=== PATIENT | female | born 1965 | race Caucasian/White ===

== ENCOUNTER 2022-07-21 19:13 | Observation (INO) | payer OTHER ==
[2022-07-21] MEDS ORDERED: Sodium Chloride 0.9% 1000 ML 1,000 ML IV STA (19:23)
[2022-07-21] MEDS ORDERED: Zithromax 500 MG/ 250 ML NaCl Premix 500 MG/250 ML IVPB IV STA (19:23)
[2022-07-21] MEDS ORDERED: ROCEPHIN 1 Gm-D5w 50 ml Bag** 1 G/50 ML IVPB IV STA (19:23)
--- NOTE | 2022-07-21 19:26 | ERPHSYRPT ---
- History of Present Illness Time Seen by Provider: 07/21/22 19:26 Source: patient, EMS Exam Limitations: no limitations Physician History: Patient BIBA for worsening cough, wheezing and SOB. She has been having sxs for the past 2 days. Cough non productive. No fevers. She was unable to sleep laying down last night and had to sleep upright in the chair. She doesn't wear oxygen at home, but is requiring 2L NC at this time w/ Ox levels in the low 90s. She denies CP, palpitations, abd pain or worsening swelling. Timing/Duration: day(s) (2), worse Activities at Onset: rest Severity of Dyspnea-Max: severe Severity of Dyspnea-Current: severe Possible Cause: occasional episodes, unknown cause Modifying Factors: Improves With: albuterol nebulizer, oxygen, rest. Worsens With: coughing, exertion, lying down Associated Symptoms: cough, wheezing, No chest pain/discomfort, No edema, No fever, No leg swelling, No productive cough, No tightness Allergies/Adverse Reactions: No Known Drug Allergies Allergy (Unverified 07/21/22 19:31) Home Medications: Aspirin 81 gm Chew [Baby Aspirin 81 mg Chew] 1 tab PO DAILY 07/21/22 [History] Etodolac 400 mg [Lodine 400 mg] 1 tab PO BID 07/21/22 [History] Insulin Glargine,Hum.rec.anlog [Basaglar Kwikpen U-100] 44 units SQ DAILY 07/21/22 [History] Levothyroxine Sodium [Levothyroxine] 25 mcg PO DAILY 07/21/22 [History] Levothyroxine Sodium [Levothyroxine] 200 mcg PO DAILY 07/21/22 [History] Metformin HCl 500 mg [Glucophage 500 MG] 1,000 mg PO BID 07/21/22 [History] Pioglitazone HCl [Actos] 1 tab PO DAILY 07/21/22 [History] Venlafaxine HCl 37.5 mg [Effexor 37.5 mg] 1 tab PO DAILY 07/21/22 [History] lisinopriL [Lisinopril] 1 tab PO DAILY 07/21/22 [History] - Review of Systems Constitutional: No Symptoms Eyes: No Symptoms Ears, Nose, & Throat: No Symptoms Respiratory: Cough, Dyspnea, Dyspnea on Exertion (YANEZ), Wheezing Cardiac: Orthopnea Abdominal/Gastrointestinal: No Abdominal Pain, No Nausea, No Vomiting, No Diarrhea Genitourinary Symptoms: No Symptoms Musculoskeletal: No Symptoms Skin: No Symptoms Neurological: No Symptoms Psychological: No Symptoms Endocrine: No Symptoms Hematologic/Lymphatic: No Symptoms Immunological/Allergic: No Symptoms All Other Systems: Reviewed and Negative - Nursing Vital Signs Nursing Vital Signs: Initial Vital Signs Temperature 98.9 F 07/21/22 19:16 Pulse Rate 101 H 07/21/22 19:16 Respiratory Rate 22 07/21/22 19:16 Blood Pressure 138/63 07/21/22 19:16 O2 Sat by Pulse Oximetry 93 L 07/21/22 19:16 Pain Scale Pain Intensity 0 - Physical Exam General Appearance: moderate distress, obese Eye Exam: eyes nml inspection Ears, Nose, Throat Exam: hearing grossly normal, normal ENT inspection Neck Exam: normal inspection Respiratory Exam: respiratory distress, airway intact, wheezing, No chest tenderness, No accessory muscle use Cardiovascular/Chest Exam: normal heart sounds, regular rate/rhythm, tachycardia Abdominal/Gastrointestinal Exam: soft, normal bowel sounds, No tenderness Extremity Exam: non-tender, swelling (b/l) Neurologic Exam: alert, oriented x 3, cooperative Skin Exam: normal color, warm, dry SpO2 Interpretation: hypoxic, O2 applied SpO2: 93 O2 Delivery: Room Air - Course Nursing assessment & vital signs reviewed: Yes EKG Interpreted by Me: RATE (92), Sinus Rhythm, NORMAL AXIS, NORMAL INTERVALS, NORMAL QRS, NORMAL ST-T - Radiology Exams Chest X-ray Interpretation: Interpreted by me, No Pneumothorax, Nml Heart Size, Inf iltrates (right) Ordered Tests: Active Orders 24 hr Category Date Time Status Account Support Rep STAT Care 07/21/22 19:25 Active EKG-ER Only STAT Care 07/21/22 19:23 Active IV Insertion STAT Care 07/21/22 19:23 Active Pulse Oximetry (ED) STAT Care 07/21/22 19:23 Active CHEST 1 VIEW (PORTABLE) Stat Exams 07/21/22 19:25 Completed CHEST WITH CONTRAST [CT] Stat Exams 07/21/22 20:15 Taken ARTERIAL BLOOD GASES Stat Lab 07/21/22 19:03 Completed CBC W DIFF Stat Lab 07/21/22 19:23 Completed CMP Stat Lab 07/21/22 19:23 Completed D-DIMER QUANTITATIVE Stat Lab 07/21/22 19:23 Completed Lactic Acid Stat Lab 07/21/22 19:03 Completed MAGNESIUM Stat Lab 07/21/22 19:23 Completed NT PRO BNPII Stat Lab 07/21/22 19:23 Completed TROPONIN Q4H Lab 07/21/22 19:30 Completed TROPONIN Q4H Lab 07/21/22 23:30 Ordered TROPONIN Q4H Lab 07/22/22 03:30 Ordered Transfer Order Routine Transfer 07/21/22 Ordered Medication Summary Generic Name Dose Route Start Last Admin Trade Name Freines PRN Reason Stop Dose Admin Azithromycin 500 mg 07/22/22 10:00 07/21/22 22:26 Azithromycin 250 Mg Tablet PO 08/21/22 09:59 500 mg DAILY JEAN CLAUDE Administration Discontinued Medications Generic Name Dose Route Start Last Admin Trade Name Alia PRN Reason Stop Dose Admin Sodium Chloride 1,000 mls @ 999 mls/hr 07/21/22 19:23 07/21/22 20:15 Sodium Chloride 0.9% 1000 Ml IV 07/21/22 20:23 999 mls/hr .Q1H1M STA Administration Ceftriaxone Sodium/Dextrose 1 g in 50 mls @ 100 mls/hr 07/21/22 19:23 07/21/22 20:15 Rocephin 1 Gm-D5w 50 Ml Bag IV 07/21/22 19:52 100 mls/hr STAT STA 100 mls/hr Administration Azithromycin 500 mg in 250 mls @ 250 mls/hr 07/21/22 19:23 07/21/22 22:27 Zithromax 500 Mg/ 250 Ml Nacl Premix IV 07/21/22 20:22 Not Given STAT STA Sodium Chloride Confirm 07/21/22 20:14 Sodium Chloride 0.9% 1000 Ml Administered 07/21/22 20:15 Dose 1,000 mls @ ud .ROUTE .STK-MED ONE Ceftriaxone Sodium/Dextrose Confirm 07/21/22 20:14 Rocephin 1 Gm-D5w 50 Ml Bag Administered 07/21/22 20:15 Dose 1 g in 50 mls @ ud IV .STK-MED ONE Azithromycin Confirm 07/21/22 20:40 Zithromax 500 Mg/ 250 Ml Nacl Premix Administered 07/21/22 20:41 Dose 500 mg in 250 mls @ ud IV .STK-MED ONE Lab/Rad Data: Laboratory Result Diagrams 07/21/22 19:23 07/21/22 19:23 Laboratory Results 07/21/22 07/21/22 07/21/22 Range/Units 19:45 19:30 19:23 WBC (4.0-10.5) x10^3/uL RBC (4.1-5.4) x10^6/uL Hgb (12.0-16.0) g/dL Hct (35-47) % MCV (78-100) fL MCH (26-32) pg MCHC (32-36) g/dL RDW (11.5-14.0) % Plt Count (150-450) x10^3/uL MPV (7.5-11.0) fL Gran % (36.0-66.0) % Immature Gran % (Auto) (0.00-0.4) % Nucleat RBC Rel Count (0.00-0.1) % Eos # (Auto) (0-0.5) x10^3/uL Immature Gran # (Auto) (0.00-0.03) x10^3u/L Absolute Lymphs (auto) (1.0-4.6) x10^3/uL Absolute Monos (auto) (0.0-1.3) x10^3/uL Absolute Nucleated RBC (0.00-0.01) x10^3u/L Lymphocytes % (24.0-44.0) % Monocytes % (0.0-12.0) % Eosinophils % (0.00-5.0) % Basophils % (0.0-0.4) % Absolute Granulocytes (1.4-6.9) x10^3/uL Basophils # (0-0.4) x10^3/uL D-Dimer 1.12 H* (0.0-0.50) mg/L Puncture Site pCO2 (35-45) mmHg pO2 (75-100) mmHg Base Excess (-2.0-2.0) O2 Saturation (94-100) g/dF ABG pH (7.35-7.45) ABG HCO3 (22-28) ABG O2 Sat (Measured) (95-100) % Caio Test A-a Gradient a/A Ratio Hemoglobin Carboxyhemoglobin (0.0-6.9) % THgb Methemoglobin (1.4-1.5) % Potassium (3.5-5.1) Temperature C POC O2 Flow Rate % Sodium (137-145) mmol/L Chloride (98-107) mmol/L Carbon Dioxide (22-30) mmol/L Anion Gap (5-15) MEQ/L BUN (7-17) mg/dL Creatinine (0.52-1.04) mg/dL Estimated GFR ML/MIN Glucose (74-106) mg/dL Lactic Acid (0.4-2.0) Calcium (8.4-10.2) mg/dL Magnesium (1.6-2.3) mg/dL Total Bilirubin (0.2-1.3) mg/dL AST (14-36) U/L ALT (0-35) U/L Alkaline Phosphatase (38-126) U/L Troponin I < 0.012 (0.000-0.034) ng/mL NT-Pro-B Natriuret Pep (<300) pg/mL Serum Total Protein (6.3-8.2) g/dL Albumin (3.5-5.0) g/dL Influenza Type A Ag NEGATIVE (NEGATIVE) Influenza Type B Ag NEGATIVE (NEGATIVE) RSV (PCR) NEGATIVE (NEGATIVE) SARS-CoV-2 (PCR) NEGATIVE (NEGATIVE) 07/21/22 07/21/22 07/21/22 Range/Units 19:23 19:23 19:03 WBC 11.9 H (4.0-10.5) x10^3/uL RBC 4.96 (4.1-5.4) x10^6/uL Hgb 13.0 (12.0-16.0) g/dL Hct 41.8 (35-47) % MCV 84.3 (78-100) fL MCH 26.2 (26-32) pg MCHC 31.1 L (32-36) g/dL RDW 15.9 H (11.5-14.0) % Plt Count 251 (150-450) x10^3/uL MPV 9.2 (7.5-11.0) fL Gran % 77.0 H (36.0-66.0) % Immature Gran % (Auto) 0.4 (0.00-0.4) % Nucleat RBC Rel Count 0.0 (0.00-0.1) % Eos # (Auto) 0.38 (0-0.5) x10^3/uL Immature Gran # (Auto) 0.05 H (0.00-0.03) x10^3u/L Absolute Lymphs (auto) 1.74 (1.0-4.6) x10^3/uL Absolute Monos (auto) 0.52 (0.0-1.3) x10^3/uL Absolute Nucleated RBC 0.00 (0.00-0.01) x10^3u/L Lymphocytes % 14.6 L (24.0-44.0) % Monocytes % 4.4 (0.0-12.0) % Eosinophils % 3.2 (0.00-5.0) % Basophils % 0.4 (0.0-0.4) % Absolute Granulocytes 9.19 H (1.4-6.9) x10^3/uL Basophils # 0.05 (0-0.4) x10^3/uL D-Dimer (0.0-0.50) mg/L Puncture Site LEFT RADIAL pCO2 57 H (35-45) mmHg pO2 119 H (75-100) mmHg Base Excess 8.5 H (-2.0-2.0) O2 Saturation 91.9 L (94-100) g/dF ABG pH 7.40 (7.35-7.45) ABG HCO3 35.3 H* (22-28) ABG O2 Sat (Measured) 98.9 (95-100) % Caio Test YES A-a Gradient 166 a/A Ratio 0.42 Hemoglobin 13.6 Carboxyhemoglobin 6.3 (0.0-6.9) % THgb Methemoglobin 0.8 L (1.4-1.5) % Potassium 3.8 3.8 (3.5-5.1) Temperature 37.0 C POC O2 Flow Rate 50 % Sodium 142 (137-145) mmol/L Chloride 101 (98-107) mmol/L Carbon Dioxide 36 H (22-30) mmol/L Anion Gap 8.7 (5-15) MEQ/L BUN 8 (7-17) mg/dL Creatinine 0.51 L (0.52-1.04) mg/dL Estimated GFR > 60.0 ML/MIN Glucose 174 H (74-106) mg/dL Lactic Acid 0.9 (0.4-2.0) Calcium 8.7 (8.4-10.2) mg/dL Magnesium 1.8 (1.6-2.3) mg/dL Total Bilirubin 0.50 (0.2-1.3) mg/dL AST 26 (14-36) U/L ALT 15 (0-35) U/L Alkaline Phosphatase 154 H (38-126) U/L Troponin I (0.000-0.034) ng/mL NT-Pro-B Natriuret Pep 181 (<300) pg/mL Serum Total Protein 7.2 (6.3-8.2) g/dL Albumin 3.8 (3.5-5.0) g/dL Influenza Type A Ag (NEGATIVE) Influenza Type B Ag (NEGATIVE) RSV (PCR) (NEGATIVE) SARS-CoV-2 (PCR) (NEGATIVE) - Progress Progress: improved Air Movement: fair Progress Note: Labs WBC 11.9, Lactate 0.9, Troponin neg, BNP wnl, D-dimer elevated at 1.12 pH 7.4, pCO2 57 Patient started on Rocephin/Azithromycin for COPD exacerbation and infiltrate in Right lower lung on CXR. SoluMedrol 125mg given in route to ED, DuoNebs repeated in ED w/ response CTA chest ordered due to elevated d-dimer, but IV infiltrated causing contrast extravasation into her left antecubital fossa. Extravasation There is swelling present, no redness, no current pain, numbness or tingling. Elevate arm above the level of the heart and warm compresses placed. 07/21/22 21:28 Dr. Du accepts for admission. Blood Culture(s) Obtained: No Antibiotics given: Yes Discussed with : Milagro Will see patient in: hospital (observation) Counseled pt/family regarding: lab results, diagnosis, need for follow-up, rad results Medical Desision Making - Discussion of managment Care discussed with:: on-call "doc" Reviewed:: Test results Agreed on:: Treatment plan, place in obs Will see patient: in hospital - Diagnostic Testing Diagnostic test were ordered, analyzed, and reviewed by me: Yes Radiological Interpretation: Interpreted by me - Risk of complications The pt has a mod risk of morbidity or mortality based on: Need for prescription drug management The pt has a high risk of morbidity or mortality based on: Decision regarding hospitilization or escalation of hosp level of care - Departure Departure Disposition: Observation Clinical Impression: Acute hypoxemic respiratory failure, COPD exacerbation, Elevated d-dimer, Extravasation of intravenous contrast medium Condition: Stable Critical Care Time: No Referrals: DAVID LUGO [Primary Care Provider] - Follow up/PCP as directed Instructions: Chronic Obstructive Pulmonary Disease, Chronic Obstructive Pulmonary Disease (COPD) (DC)
[2022-07-21 19:30] LABS: A-aADO2 166; ABG HEMOGLOBIN 13.6; ABG POTASSIUM 3.8 (3.5-5.1); ARTERIAL BLD GAS O2 SATURATION 98.9 % (95-100); ARTERIAL BLOOD GAS BASE EXCESS 8.5 (-2.0-2.0); ARTERIAL BLOOD GAS FIO2 50 %; ARTERIAL BLOOD GAS PCO2 57 mmHg (35-45); ARTERIAL BLOOD GAS PO2 119 mmHg (75-100); CARBOXYHEMOGLOBIN 6.3 % THgb (0.0-6.9); HCO3- 35.3 (22-28); HGB O2 SAT 91.9 g/dF (94-100); Methhemoglobin 0.8 % (1.4-1.5); paO2 pAO1 0.42
[2022-07-21 19:31] LABS: ABG SITE LEFT RADIAL; ALLEN TEST OK? YES; Lactic Acid 0.9 (0.4-2.0)
[2022-07-21 19:45] LABS: Absolute Neutrophil Ct (ANC) 9.19 x10^3/uL (1.4-6.9); BASOPHIL % 0.4 % (0.0-0.4); Basophil (Absolute #) 0.05 x10^3/uL (0-0.4); Eosinophil % 3.2 % (0.00-5.0); Eosinophil (Absolute #) 0.38 x10^3/uL (0-0.5); Hematocrit 41.8 % (35-47); IMMATURE GRAN # 0.05 x10^3u/L (0.00-0.03); IMMATURE GRAN % 0.4 % (0.00-0.4); Lymphocyte (Absolute #) 1.74 x10^3/uL (1.0-4.6); Lymphocytes % 14.6 % (24.0-44.0); Mean Cell Volume 84.3 fL (78-100); Mean Corpuscular Hemoglobin 26.2 pg (26-32); Mean Corpuscular Hgb Concent. 31.1 g/dL (32-36); Mean Platelet Volume 9.2 fL (7.5-11.0); Monocyte (Absolute #) 0.52 x10^3/uL (0.0-1.3); Monocytes % 4.4 % (0.0-12.0); Platelet Count 251 x10^3/uL (150-450); Red Blood Count 4.96 x10^6/uL (4.1-5.4); Red Cell Distribution Width 15.9 % (11.5-14.0); White Blood Count 11.9 x10^3/uL (4.0-10.5)
[2022-07-21 20:08] LABS: ALBUMIN 3.8 g/dL (3.5-5.0); ALKALINE PHOSPHATASE 154 U/L (38-126); ANION GAP 8.7 MEQ/L (5-15); BLOOD UREA NITROGEN 8 mg/dL (7-17); CHLORIDE 101 mmol/L (98-107); Calcium 8.7 mg/dL (8.4-10.2); Carbon Dioxide 36 mmol/L (22-30); Creatinine 1 0.51 mg/dL (0.52-1.04); EST GLOMERULAR FILTRATION RATE > 60.0 ML/MIN; Glucose 174 mg/dL (74-106); MAGNESIUM 1.8 mg/dL (1.6-2.3); NT PRO BNPII 181 pg/mL (<300); Potassium 3.8 mmol/L (3.5-5.1); SGOT/AST 26 U/L (14-36); SGPT/ALT 15 U/L (0-35); SODIUM 142 mmol/L (137-145); Total Protein 7.2 g/dL (6.3-8.2)
[2022-07-21] MEDS ORDERED: Sodium Chloride 0.9% 1000 ML 1,000 ML ONE (20:14)
[2022-07-21] MEDS ORDERED: ROCEPHIN 1 Gm-D5w 50 ml Bag** 1 G/50 ML IVPB IV ONE (20:14)
[2022-07-21 20:21] LABS: INFLUENZA A NEGATIVE (NEGATIVE); INFLUENZA B NEGATIVE (NEGATIVE); RESPIRATORY SYNCTIAL VIRUS NEGATIVE (NEGATIVE); SARS-CoV-2 Xpert Express NEGATIVE (NEGATIVE)
--- NOTE | 2022-07-21 20:33 | XRAY ---
Indication: Short of breath. Comparison: None Portable chest demonstrates mild right infrahilar infiltrate versus atelectasis without consolidation/large effusion. Remaining heart and left lung unremarkable. Bony thorax intact with mild degenerative changes.
[2022-07-21] MEDS ORDERED: Zithromax 500 MG/ 250 ML NaCl Premix 0 MG/0 ML IVPB IV ONE (20:40)
--- NOTE | 2022-07-21 22:45 | XRAY ---
CLINICAL HISTORY:sob COMPARISON:None; TECHNIQUES:CT scan of the chest post intravenous contrast and angiography of the pulmonary artery and its branches was done with images reconstructed in mediastinal and lung windows; FINDINGS: Compromised evaluation of the pulmonary arteries due to large body habitus. CT Pulmonary angiography:. The pulmonary trunk and both the main pulmonary arteries are normal. No evidence of any filling defects involving the main/segmental pulmonary arteries till the periphery. Lungs:. A calcified nodule is seen in the left upper lung lobe measuring 1.3 x 1.03 cm in size. Solid nodule in the left lower lobe measuring about 6 x 6 mm. The parenchyma of both lungs does not show any abnormality. Calcified right hilar lymph node is seen. Trachea and esophagus are normal. Arielle, main bronchi, and erma on both sides appear normal. No pleural pathology is noted. There is no evidence of any mass lesion in the lungs. Mediastinum appears normal. Heart and major vessels appear normal. Visualized section of the abdomen does not reveal any significant abnormality. IMPRESSION: 1-Negative study for pulmonary thromboembolism. 2-Compromised evaluation of the pulmonary arteries due to large body habitus. 3-A calcified nodule in the left upper lung lobe measuring 1.3 x 1.03 cm in size. 4-Solid nodule in the left lower lobe measuring about 6 x 6 mm. Follow-up CT may be recommended at 6-12 months. Electronically Signed by: Donaldo Byrne MD. (07/21/2022 21:38:29 PST MANAGER)
[2022-07-21] MEDS: DUONEB 0.5-3 MG/3 ml Neb IH SCH (23:15)
[2022-07-21] MEDS ORDERED: HOLD METFORMIN PRODUCTS FOR 48 HOURS MC ONE (23:30)
[2022-07-21] MEDS ORDERED: DELTASONE 20 MG PO ONE (23:33)
[2022-07-21] MEDS: solu-MEDROL 60 MG, Sterile H2O 10 ml 2 ML IV SCH ×2 (23:33)
[2022-07-21] MEDS: Pepcid 20 MG PO SCH (23:44)
[2022-07-22] MEDS: Sodium Chloride 0.9% 1000 ML 1,000 ML IV SCH ×2 (00:12→18:51)
[2022-07-22] MEDS: DUONEB 0.5-3 MG/3 ml Neb IH SCH ×6 (03:00→22:49)
[2022-07-22 04:06] LABS: Hematocrit 41.1 % (35-47); Hemoglobin 12.9 g/dL (12.0-16.0); Mean Cell Volume 84.2 fL (78-100); Mean Corpuscular Hemoglobin 26.4 pg (26-32); Mean Corpuscular Hgb Concent. 31.4 g/dL (32-36); Mean Platelet Volume 9.1 fL (7.5-11.0); Platelet Count 240 x10^3/uL (150-450); Red Blood Count 4.88 x10^6/uL (4.1-5.4); Red Cell Distribution Width 16.1 % (11.5-14.0); White Blood Count 12.5 x10^3/uL (4.0-10.5)
[2022-07-22 04:11] LABS: ANION GAP 10.4 MEQ/L (5-15); BLOOD UREA NITROGEN 9 mg/dL (7-17); CHLORIDE 99 mmol/L (98-107); Calcium 8.7 mg/dL (8.4-10.2); Carbon Dioxide 34 mmol/L (22-30); Creatinine 1 0.52 mg/dL (0.52-1.04); EST GLOMERULAR FILTRATION RATE > 60.0 ML/MIN; Glucose 310 mg/dL (74-106); Potassium 4.1 mmol/L (3.5-5.1); SODIUM 139 mmol/L (137-145)
[2022-07-22] MEDS ORDERED: solu-MEDROL ONE (05:32)
[2022-07-22] MEDS ORDERED: Sterile H2O 10 ml IJ ONE (05:33)
[2022-07-22] MEDS: solu-MEDROL 60 MG, Sterile H2O 10 ml 2 ML IV SCH ×8 (05:34→23:55)
--- NOTE | 2022-07-22 07:44 | PCM.HP ---
History of Present Illness - Chief Complaint Chief Complaint: Acute Hypoxemia, Resp Failure, COPD Exac. Extravasation of IV contrast History of Present Illness: is a 56 year old female patient of Dr Sylvain Montes De Oca, she presented to the ER with a 2 day history of cough, shortness of breath and wheezing. sister has a recent similar illness, no underlying history of pulmonary problmes but she is morbidly obese and a longtime smoker. - Review of Systems Constitutional: No Fever, No Chills Respiratory: Cough, Short Of Breath, Wheezing Cardiac: No Chest Pain, No Edema, No Syncope Abdominal/Gastrointestinal: No Abdominal Pain, No Nausea, No Vomiting, No Diarrhea Genitourinary Symptoms: No Dysuria Skin: No Rash All Other Systems: Reviewed and Negative Medications & Allergies Home Medications: Home Medication List Aspirin 81 gm Chew [Baby Aspirin 81 mg Chew] 81 mg PO DAILY 07/21/22 [History Confirmed 07/21/22] Etodolac 400 mg [Lodine 400 mg] 400 mg PO BID 07/21/22 [History Confirmed 07/21/22] Insulin Glargine,Hum.rec.anlog [Basaglar Kwikpen U-100] 44 units SQ DAILY 07/21/22 [History Confirmed 07/21/22] Levothyroxine Sodium [Levothyroxine] 25 mcg PO DAILY 07/21/22 [History Confirmed 07/21/22] Levothyroxine Sodium [Levothyroxine] 200 mcg PO DAILY 07/21/22 [History Confirmed 07/21/22] Metformin HCl 500 mg [Glucophage 500 MG] 1,000 mg PO BID 07/21/22 [History Confirmed 07/21/22] Pioglitazone HCl [Actos] 45 mg PO DAILY 07/21/22 [History Confirmed 07/21/22] Venlafaxine HCl 37.5 mg [Effexor 37.5 mg] 37.5 mg PO DAILY 07/21/22 [History Confirmed 07/21/22] lisinopriL [Lisinopril] 5 mg PO DAILY 07/21/22 [History Confirmed 07/21/22] Allergies/Adverse Reactions: Allergies Allergy/AdvReac Type Severity Reaction Status Date / Time No Known Drug Allergies Allergy Verified 07/21/22 22:56 - Past Medical History Past Medical History: Yes Neurological History: No Pertinent History ENT History: No Pertinent History Cardiac History: Hypertension Respiratory History: No Pertinent History Endocrine Medical History: Diabetes Type II Musculoskelatal History: Arthritis GI Medical History: No Pertinent History History: No Pertinent History Pyscho-Social History: Anxiety Reproductive Disorders: No Pertinent History - Female History Are you now?: No - Past Surgical History Past Surgical History: No Neuro Surgical History: No Pertinent History Cardiac History: No Pertinent History Respiratory Surgery: No Pertinent History GI Surgical History: No Pertinent History Genitourinary Surgical Hx: No Pertinent History Musculskeletal Surgical Hx: No Pertinent History Female Surgical History: No Pertinent History - Social History Smoking Status: Current every day smoker How long have you smoked: 25 Exposure to second hand smoke: No Alcohol: None Drug Use: none - Physical Exam Vital Signs: Vital Signs - 24 hr Temp Pulse Resp BP Pulse Ox 07/22/22 06:59 70 18 92 L 07/22/22 05:15 85 130/60 07/22/22 03:49 96.8 F 87 30 H 160/96 91 L 07/22/22 03:00 89 32 H 91 L 07/21/22 23:27 91 L 07/21/22 23:15 83 36 H 91 L 07/21/22 22:44 97.9 F 98 H 22 138/86 91 L 07/21/22 22:38 93 L 07/21/22 22:00 79 20 121/46 92 L 07/21/22 21:52 92 H 14 112/71 92 L 07/21/22 20:14 85 24 137/70 93 L 07/21/22 19:23 93 L 07/21/22 19:17 32 H 97 07/21/22 19:16 98.9 F 101 H 22 138/63 93 L General Appearance: no apparent distress, obese Neurologic Exam: alert, oriented x 3, cooperative Respiratory Exam: prolonged expirations, wheezing Cardiovascular Exam: regular rate/rhythm, normal heart sounds, normal peripheral pulses Gastrointestinal/Abdomen Exam: soft, normal bowel sounds, No tenderness, No mass Extremity Exam: normal inspection, normal range of motion, pelvis stable Skin Exam: normal color, warm, dry, No rash Results - Labs Lab/Micro Results: Lab Results-Last 24 Hours 04/08/23 04/08/23 04/08/23 Range/Units 19:03 19:23 19:23 WBC 11.9 H (4.0-10.5) x10^3/uL RBC 4.96 (4.1-5.4) x10^6/uL Hgb 13.0 (12.0-16.0) g/dL Hct 41.8 (35-47) % MCV 84.3 (78-100) fL MCH 26.2 (26-32) pg MCHC 31.1 L (32-36) g/dL RDW 15.9 H (11.5-14.0) % Plt Count 251 (150-450) x10^3/uL MPV 9.2 (7.5-11.0) fL Gran % 77.0 H (36.0-66.0) % Immature Gran % (Auto) 0.4 (0.00-0.4) % Nucleat RBC Rel Count 0.0 (0.00-0.1) % Eos # (Auto) 0.38 (0-0.5) x10^3/uL Immature Gran # (Auto) 0.05 H (0.00-0.03) x10^3u/L Absolute Lymphs (auto) 1.74 (1.0-4.6) x10^3/uL Absolute Monos (auto) 0.52 (0.0-1.3) x10^3/uL Absolute Nucleated RBC 0.00 (0.00-0.01) x10^3u/L Lymphocytes % 14.6 L (24.0-44.0) % Monocytes % 4.4 (0.0-12.0) % Eosinophils % 3.2 (0.00-5.0) % Basophils % 0.4 (0.0-0.4) % Absolute Granulocytes 9.19 H (1.4-6.9) x10^3/uL Basophils # 0.05 (0-0.4) x10^3/uL D-Dimer (0.0-0.50) mg/L Puncture Site LEFT RADIAL pCO2 57 H (35-45) mmHg pO2 119 H (75-100) mmHg Base Excess 8.5 H (-2.0-2.0) O2 Saturation 91.9 L (94-100) g/dF ABG pH 7.40 (7.35-7.45) ABG HCO3 35.3 H* (22-28) ABG O2 Sat (Measured) 98.9 (95-100) % Caio Test YES A-a Gradient 166 a/A Ratio 0.42 Hemoglobin 13.6 Carboxyhemoglobin 6.3 (0.0-6.9) % THgb Methemoglobin 0.8 L (1.4-1.5) % Potassium 3.8 3.8 (3.5-5.1) Temperature 37.0 C POC O2 Flow Rate 50 % Sodium 142 (137-145) mmol/L Chloride 101 (98-107) mmol/L Carbon Dioxide 36 H (22-30) mmol/L Anion Gap 8.7 (5-15) MEQ/L BUN 8 (7-17) mg/dL Creatinine 0.51 L (0.52-1.04) mg/dL Estimated GFR > 60.0 ML/MIN Glucose 174 H (74-106) mg/dL POC Glucometer (74 to 106) mg/dL Lactic Acid 0.9 (0.4-2.0) Calcium 8.7 (8.4-10.2) mg/dL Magnesium 1.8 (1.6-2.3) mg/dL Total Bilirubin 0.50 (0.2-1.3) mg/dL AST 26 (14-36) U/L ALT 15 (0-35) U/L Alkaline Phosphatase 154 H (38-126) U/L Troponin I (0.000-0.034) ng/mL NT-Pro-B Natriuret Pep 181 (<300) pg/mL Serum Total Protein 7.2 (6.3-8.2) g/dL Albumin 3.8 (3.5-5.0) g/dL Influenza Type A Ag (NEGATIVE) Influenza Type B Ag (NEGATIVE) RSV (PCR) (NEGATIVE) SARS-CoV-2 (PCR) (NEGATIVE) 07/21/22 07/21/22 07/21/22 Range/Units 19:23 19:30 19:45 WBC (4.0-10.5) x10^3/uL RBC (4.1-5.4) x10^6/uL Hgb (12.0-16.0) g/dL Hct (35-47) % MCV (78-100) fL MCH (26-32) pg MCHC (32-36) g/dL RDW (11.5-14.0) % Plt Count (150-450) x10^3/uL MPV (7.5-11.0) fL Gran % (36.0-66.0) % Immature Gran % (Auto) (0.00-0.4) % Nucleat RBC Rel Count (0.00-0.1) % Eos # (Auto) (0-0.5) x10^3/uL Immature Gran # (Auto) (0.00-0.03) x10^3u/L Absolute Lymphs (auto) (1.0-4.6) x10^3/uL Absolute Monos (auto) (0.0-1.3) x10^3/uL Absolute Nucleated RBC (0.00-0.01) x10^3u/L Lymphocytes % (24.0-44.0) % Monocytes % (0.0-12.0) % Eosinophils % (0.00-5.0) % Basophils % (0.0-0.4) % Absolute Granulocytes (1.4-6.9) x10^3/uL Basophils # (0-0.4) x10^3/uL D-Dimer 1.12 H* (0.0-0.50) mg/L Puncture Site pCO2 (35-45) mmHg pO2 (75-100) mmHg Base Excess (-2.0-2.0) O2 Saturation (94-100) g/dF ABG pH (7.35-7.45) ABG HCO3 (22-28) ABG O2 Sat (Measured) (95-100) % Caio Test A-a Gradient a/A Ratio Hemoglobin Carboxyhemoglobin (0.0-6.9) % THgb Methemoglobin (1.4-1.5) % Potassium (3.5-5.1) Temperature C POC O2 Flow Rate % Sodium (137-145) mmol/L Chloride (98-107) mmol/L Carbon Dioxide (22-30) mmol/L Anion Gap (5-15) MEQ/L BUN (7-17) mg/dL Creatinine (0.52-1.04) mg/dL Estimated GFR ML/MIN Glucose (74-106) mg/dL POC Glucometer (74 to 106) mg/dL Lactic Acid (0.4-2.0) Calcium (8.4-10.2) mg/dL Magnesium (1.6-2.3) mg/dL Total Bilirubin (0.2-1.3) mg/dL AST (14-36) U/L ALT (0-35) U/L Alkaline Phosphatase (38-126) U/L Troponin I < 0.012 (0.000-0.034) ng/mL NT-Pro-B Natriuret Pep (<300) pg/mL Serum Total Protein (6.3-8.2) g/dL Albumin (3.5-5.0) g/dL Influenza Type A Ag NEGATIVE (NEGATIVE) Influenza Type B Ag NEGATIVE (NEGATIVE) RSV (PCR) NEGATIVE (NEGATIVE) SARS-CoV-2 (PCR) NEGATIVE (NEGATIVE) 07/22/22 07/22/22 07/22/22 Range/Units 00:00 03:58 03:58 WBC 12.5 H (4.0-10.5) x10^3/uL RBC 4.88 (4.1-5.4) x10^6/uL Hgb 12.9 (12.0-16.0) g/dL Hct 41.1 (35-47) % MCV 84.2 (78-100) fL MCH 26.4 (26-32) pg MCHC 31.4 L (32-36) g/dL RDW 16.1 H (11.5-14.0) % Plt Count 240 (150-450) x10^3/uL MPV 9.1 (7.5-11.0) fL Gran % (36.0-66.0) % Immature Gran % (Auto) (0.00-0.4) % Nucleat RBC Rel Count (0.00-0.1) % Eos # (Auto) (0-0.5) x10^3/uL Immature Gran # (Auto) (0.00-0.03) x10^3u/L Absolute Lymphs (auto) (1.0-4.6) x10^3/uL Absolute Monos (auto) (0.0-1.3) x10^3/uL Absolute Nucleated RBC (0.00-0.01) x10^3u/L Lymphocytes % (24.0-44.0) % Monocytes % (0.0-12.0) % Eosinophils % (0.00-5.0) % Basophils % (0.0-0.4) % Absolute Granulocytes (1.4-6.9) x10^3/uL Basophils # (0-0.4) x10^3/uL D-Dimer (0.0-0.50) mg/L Puncture Site pCO2 (35-45) mmHg pO2 (75-100) mmHg Base Excess (-2.0-2.0) O2 Saturation (94-100) g/dF ABG pH (7.35-7.45) ABG HCO3 (22-28) ABG O2 Sat (Measured) (95-100) % Caio Test A-a Gradient a/A Ratio Hemoglobin Carboxyhemoglobin (0.0-6.9) % THgb Methemoglobin (1.4-1.5) % Potassium (3.5-5.1) Temperature C POC O2 Flow Rate % Sodium (137-145) mmol/L Chloride (98-107) mmol/L Carbon Dioxide (22-30) mmol/L Anion Gap (5-15) MEQ/L BUN (7-17) mg/dL Creatinine (0.52-1.04) mg/dL Estimated GFR ML/MIN Glucose (74-106) mg/dL POC Glucometer (74 to 106) mg/dL Lactic Acid (0.4-2.0) Calcium (8.4-10.2) mg/dL Magnesium (1.6-2.3) mg/dL Total Bilirubin (0.2-1.3) mg/dL AST (14-36) U/L ALT (0-35) U/L Alkaline Phosphatase (38-126) U/L Troponin I < 0.012 < 0.012 (0.000-0.034) ng/mL NT-Pro-B Natriuret Pep (<300) pg/mL Serum Total Protein (6.3-8.2) g/dL Albumin (3.5-5.0) g/dL Influenza Type A Ag (NEGATIVE) Influenza Type B Ag (NEGATIVE) RSV (PCR) (NEGATIVE) SARS-CoV-2 (PCR) (NEGATIVE) 07/22/22 07/22/22 Range/Units 03:58 06:54 WBC (4.0-10.5) x10^3/uL RBC (4.1-5.4) x10^6/uL Hgb (12.0-16.0) g/dL Hct (35-47) % MCV (78-100) fL MCH (26-32) pg MCHC (32-36) g/dL RDW (11.5-14.0) % Plt Count (150-450) x10^3/uL MPV (7.5-11.0) fL Gran % (36.0-66.0) % Immature Gran % (Auto) (0.00-0.4) % Nucleat RBC Rel Count (0.00-0.1) % Eos # (Auto) (0-0.5) x10^3/uL Immature Gran # (Auto) (0.00-0.03) x10^3u/L Absolute Lymphs (auto) (1.0-4.6) x10^3/uL Absolute Monos (auto) (0.0-1.3) x10^3/uL Absolute Nucleated RBC (0.00-0.01) x10^3u/L Lymphocytes % (24.0-44.0) % Monocytes % (0.0-12.0) % Eosinophils % (0.00-5.0) % Basophils % (0.0-0.4) % Absolute Granulocytes (1.4-6.9) x10^3/uL Basophils # (0-0.4) x10^3/uL D-Dimer (0.0-0.50) mg/L Puncture Site pCO2 (35-45) mmHg pO2 (75-100) mmHg Base Excess (-2.0-2.0) O2 Saturation (94-100) g/dF ABG pH (7.35-7.45) ABG HCO3 (22-28) ABG O2 Sat (Measured) (95-100) % Caio Test A-a Gradient a/A Ratio Hemoglobin Carboxyhemoglobin (0.0-6.9) % THgb Methemoglobin (1.4-1.5) % Potassium 4.1 (3.5-5.1) Temperature C POC O2 Flow Rate % Sodium 139 (137-145) mmol/L Chloride 99 (98-107) mmol/L Carbon Dioxide 34 H (22-30) mmol/L Anion Gap 10.4 (5-15) MEQ/L BUN 9 (7-17) mg/dL Creatinine 0.52 (0.52-1.04) mg/dL Estimated GFR > 60.0 ML/MIN Glucose 310 H (74-106) mg/dL POC Glucometer 306 H (74 to 106) mg/dL Lactic Acid (0.4-2.0) Calcium 8.7 (8.4-10.2) mg/dL Magnesium (1.6-2.3) mg/dL Total Bilirubin (0.2-1.3) mg/dL AST (14-36) U/L ALT (0-35) U/L Alkaline Phosphatase (38-126) U/L Troponin I (0.000-0.034) ng/mL NT-Pro-B Natriuret Pep (<300) pg/mL Serum Total Protein (6.3-8.2) g/dL Albumin (3.5-5.0) g/dL Influenza Type A Ag (NEGATIVE) Influenza Type B Ag (NEGATIVE) RSV (PCR) (NEGATIVE) SARS-CoV-2 (PCR) (NEGATIVE) - Radiology Impressions Radiology Exams & Impressions: Radiology Procedures Category Date Time Status CHEST 1 VIEW (PORTABLE) Stat Exams 07/21/22 19:25 Completed CHEST WITH CONTRAST [CT] Stat Exams 07/21/22 20:15 Completed - Other Procedures and Tests Respiratory Therapy 07/21/22 22:45 Oxygen Nasal Cannula 2 lpm 07/21/22 23:26 Respiratory Therapy Assessment DAILY Assessment/Plan (1) COPD exacerbation Current Visit: Yes Status: Acute Assessment & Plan: continue rocephin/zithromax, nebs and IV steroids at this time. counseled on smoking cessation Code(s): J44.1 - CHRONIC OBSTRUCTIVE PULMONARY DISEASE W (ACUTE) EXACERBATION (2) Acute hypoxemic respiratory failure Current Visit: Yes Status: Acute Code(s): J96.01 - ACUTE RESPIRATORY FAILURE WITH HYPOXIA
[2022-07-22] MEDS: Pepcid 20 MG PO SCH ×2 (09:56→21:01)
[2022-07-22] MEDS: ENOXAPARIN SODIUM SQ SCH (09:56)
[2022-07-22] MEDS: HUMALOG SQ PRN ×4 (09:56→21:01)
[2022-07-22] MEDS ORDERED: Zithromax 250 MG TABLET PO SCH (10:00)
[2022-07-22] MEDS ORDERED: TYLENOL 325 MG PO PRN (11:12)
[2022-07-22] MEDS: ECOTRIN 81 MG PO SCH (11:30)
[2022-07-22] MEDS: EFFEXOR 37.5 MG PO SCH (11:31)
[2022-07-22] MEDS: SYNTHROID 25 MCG PO SCH (11:31)
[2022-07-22] MEDS: SYNTHROID 100 MCG PO SCH (11:31)
[2022-07-22] MEDS: Zestril 5 MG PO SCH (11:31)
[2022-07-22] MEDS: Lantus Insulin SQ SCH (11:32)
[2022-07-22] MEDS: HOLD METFORMIN PRODUCTS FOR 48 HOURS MC SCH (14:32)
[2022-07-22] MEDS: ROCEPHIN 1 Gm-D5w 50 ml Bag** 1 G/50 ML IVPB IV SCH (21:02)
[2022-07-22] MEDS: Zithromax 500 MG/ 250 ML NaCl Premix 500 MG/250 ML IVPB IV SCH (21:08)
[2022-07-23] MEDS: DUONEB 0.5-3 MG/3 ml Neb IH SCH ×6 (03:04→23:15)
[2022-07-23 04:57] LABS: Absolute Neutrophil Ct (ANC) 10.22 x10^3/uL (1.4-6.9); BASOPHIL % 0.3 % (0.0-0.4); Basophil (Absolute #) 0.03 x10^3/uL (0-0.4); Eosinophil (Absolute #) 0 x10^3/uL (0-0.5); Hematocrit 39.7 % (35-47); Hemoglobin 12.2 g/dL (12.0-16.0); IMMATURE GRAN # 0.14 x10^3u/L (0.00-0.03); IMMATURE GRAN % 1.2 % (0.00-0.4); Lymphocytes % 5.2 % (24.0-44.0); Mean Cell Volume 85.6 fL (78-100); Mean Corpuscular Hemoglobin 26.3 pg (26-32); Mean Corpuscular Hgb Concent. 30.7 g/dL (32-36); Mean Platelet Volume 9.5 fL (7.5-11.0); Monocyte (Absolute #) 0.55 x10^3/uL (0.0-1.3); Monocytes % 4.8 % (0.0-12.0); Neutrophil % 88.5 % (36.0-66.0); Platelet Count 227 x10^3/uL (150-450); Red Blood Count 4.64 x10^6/uL (4.1-5.4); Red Cell Distribution Width 16.6 % (11.5-14.0); White Blood Count 11.5 x10^3/uL (4.0-10.5)
[2022-07-23] MEDS: solu-MEDROL 60 MG, Sterile H2O 10 ml 2 ML IV SCH ×8 (05:06→23:32)
[2022-07-23 05:13] LABS: ANION GAP 8.8 MEQ/L (5-15); BLOOD UREA NITROGEN 17 mg/dL (7-17); CHLORIDE 100 mmol/L (98-107); Calcium 8.4 mg/dL (8.4-10.2); Carbon Dioxide 33 mmol/L (22-30); Creatinine 1 0.52 mg/dL (0.52-1.04); EST GLOMERULAR FILTRATION RATE > 60.0 ML/MIN; Glucose 389 mg/dL (74-106); Potassium 4.4 mmol/L (3.5-5.1); SODIUM 137 mmol/L (137-145)
--- NOTE | 2022-07-23 08:16 | PCM.NOTE ---
Date and Time: 07/23/22813 Subjective Assessment: patient is breathing some better, still requiring 4L oxygen. wants to go home, insists she can go home on oxygen Objective Exam General Appearance: no apparent distress, alert Neurologic Exam: alert, oriented x 3 Respiratory Exam: prolonged expirations, wheezing Cardiovascular Exam: regular rate/rhythm, normal heart sounds Gastrointestinal/Abdomen Exam: soft, No tenderness, No mass Extremity Exam: normal inspection, normal range of motion OBJECTIVE DATA Vital Signs: Vital Signs - 24 hr Temp Pulse Resp BP Pulse Ox 07/23/22 07:20 68 20 99 07/23/22 07:00 98.4 F 69 16 124/64 89 L 07/23/22 03:04 83 24 94 L 07/23/22 03:00 97.0 F 83 24 126/65 94 L 07/22/22 23:00 97.1 F 86 23 118/61 94 L 07/22/22 22:49 86 23 94 L 07/22/22 19:20 97.8 F 68 20 146/64 94 L 07/22/22 18:48 68 20 94 L 07/22/22 17:00 97 F 81 19 131/61 96 07/22/22 15:14 88 18 93 L 07/22/22 12:20 96.9 F 88 19 135/68 92 L 07/22/22 10:57 82 18 95 07/22/22 09:00 96.9 F 82 19 133/65 95 Pain Assessment - Last Documented Pain Intensity 0 Pain Scale Used 0-10 Pain Scale Intake and Output: Intake & Output 07/20/22 07/21/22 07/22/22 07/23/22 11:59 11:59 11:59 11:59 Intake Total 1256 3175 Output Total 350 800 Balance 906 2375 Weight 201.3 kg Lab Results: Lab Results-Last 24 Hours 07/22/22 07/22/22 07/22/22 Range/Units 11:35 16:30 20:55 WBC (4.0-10.5) x10^3/uL RBC (4.1-5.4) x10^6/uL Hgb (12.0-16.0) g/dL Hct (35-47) % MCV (78-100) fL MCH (26-32) pg MCHC (32-36) g/dL RDW (11.5-14.0) % Plt Count (150-450) x10^3/uL MPV (7.5-11.0) fL Gran % (36.0-66.0) % Immature Gran % (Auto) (0.00-0.4) % Nucleat RBC Rel Count (0.00-0.1) % Eos # (Auto) (0-0.5) x10^3/uL Immature Gran # (Auto) (0.00-0.03) x10^3u/L Absolute Lymphs (auto) (1.0-4.6) x10^3/uL Absolute Monos (auto) (0.0-1.3) x10^3/uL Absolute Nucleated RBC (0.00-0.01) x10^3u/L Lymphocytes % (24.0-44.0) % Monocytes % (0.0-12.0) % Eosinophils % (0.00-5.0) % Basophils % (0.0-0.4) % Absolute Granulocytes (1.4-6.9) x10^3/uL Basophils # (0-0.4) x10^3/uL Sodium (137-145) mmol/L Potassium (3.5-5.1) mmol/L Chloride (98-107) mmol/L Carbon Dioxide (22-30) mmol/L Anion Gap (5-15) MEQ/L BUN (7-17) mg/dL Creatinine (0.52-1.04) mg/dL Estimated GFR ML/MIN Glucose (74-106) mg/dL POC Glucometer 365 H 322 H 421 H (74 to 106) mg/dL Calcium (8.4-10.2) mg/dL 07/23/22 07/23/22 07/23/22 Range/Units 04:46 04:46 07:04 WBC 11.5 H (4.0-10.5) x10^3/uL RBC 4.64 (4.1-5.4) x10^6/uL Hgb 12.2 (12.0-16.0) g/dL Hct 39.7 (35-47) % MCV 85.6 (78-100) fL MCH 26.3 (26-32) pg MCHC 30.7 L (32-36) g/dL RDW 16.6 H (11.5-14.0) % Plt Count 227 (150-450) x10^3/uL MPV 9.5 (7.5-11.0) fL Gran % 88.5 H (36.0-66.0) % Immature Gran % (Auto) 1.2 H (0.00-0.4) % Nucleat RBC Rel Count 0.0 (0.00-0.1) % Eos # (Auto) 0 (0-0.5) x10^3/uL Immature Gran # (Auto) 0.14 H (0.00-0.03) x10^3u/L Absolute Lymphs (auto) 0.60 L (1.0-4.6) x10^3/uL Absolute Monos (auto) 0.55 (0.0-1.3) x10^3/uL Absolute Nucleated RBC 0.00 (0.00-0.01) x10^3u/L Lymphocytes % 5.2 L (24.0-44.0) % Monocytes % 4.8 (0.0-12.0) % Eosinophils % 0.0 (0.00-5.0) % Basophils % 0.3 (0.0-0.4) % Absolute Granulocytes 10.22 H (1.4-6.9) x10^3/uL Basophils # 0.03 (0-0.4) x10^3/uL Sodium 137 (137-145) mmol/L Potassium 4.4 (3.5-5.1) mmol/L Chloride 100 (98-107) mmol/L Carbon Dioxide 33 H (22-30) mmol/L Anion Gap 8.8 (5-15) MEQ/L BUN 17 (7-17) mg/dL Creatinine 0.52 (0.52-1.04) mg/dL Estimated GFR > 60.0 ML/MIN Glucose 389 H (74-106) mg/dL POC Glucometer 388 H (74 to 106) mg/dL Calcium 8.4 (8.4-10.2) mg/dL Radiology Exams: Radiology Procedures Category Date Time Status CHEST 1 VIEW (PORTABLE) Stat Exams 07/21/22 19:25 Completed CHEST WITH CONTRAST [CT] Stat Exams 07/21/22 20:15 Completed Assessment/Plan (1) COPD exacerbation Current Visit: Yes Status: Acute Assessment & Plan: continue rocephin/zithromax and solu medrol/nebs. advised to keep one more day Code(s): J44.1 - CHRONIC OBSTRUCTIVE PULMONARY DISEASE W (ACUTE) EXACERBATION (2) Acute hypoxemic respiratory failure Current Visit: Yes Status: Acute Code(s): J96.01 - ACUTE RESPIRATORY FAILURE WITH HYPOXIA
[2022-07-23] MEDS: SYNTHROID 100 MCG PO SCH (09:16)
[2022-07-23] MEDS: ENOXAPARIN SODIUM SQ SCH (09:16)
[2022-07-23] MEDS: ECOTRIN 81 MG PO SCH (09:16)
[2022-07-23] MEDS: Lantus Insulin SQ SCH (09:16)
[2022-07-23] MEDS: EFFEXOR 37.5 MG PO SCH (09:16)
[2022-07-23] MEDS: HUMALOG SQ PRN ×4 (09:17→23:31)
[2022-07-23] MEDS: SYNTHROID 25 MCG PO SCH (09:17)
[2022-07-23] MEDS: Zestril 5 MG PO SCH (09:17)
[2022-07-23] MEDS: Pepcid 20 MG PO SCH ×2 (09:17→21:04)
[2022-07-23] MEDS ORDERED: LEVOTHYROXINE SODIUM 200 MCG PO SCH (10:00)
[2022-07-23] MEDS ORDERED: NON-FORMULARY ITEM (Levothyroxine Sodium [Levothyroxine] 25 MCG Capsule) PO SCH (10:00)
[2022-07-23] MEDS ORDERED: BABY ASPIRIN 81 MG CHEW PO SCH (10:00)
[2022-07-23] MEDS ORDERED: NON-FORMULARY ITEM (Insulin Glargine,Hum.Rec.Anlog [Basaglar Kwikpen U-100] 100 UNIT/ML In SQ SCH (10:00)
[2022-07-23] MEDS ORDERED: solu-MEDROL ONE (12:23)
[2022-07-23] MEDS: ROCEPHIN 1 Gm-D5w 50 ml Bag** 1 G/50 ML IVPB IV SCH (21:04)
[2022-07-23] MEDS: Zithromax 500 MG/ 250 ML NaCl Premix 500 MG/250 ML IVPB IV SCH (21:04)
[2022-07-23] MEDS: HOLD METFORMIN PRODUCTS FOR 48 HOURS MC SCH (23:41)
[2022-07-24] MEDS: DUONEB 0.5-3 MG/3 ml Neb IH SCH ×3 (03:00→10:42)
[2022-07-24] MEDS: solu-MEDROL 60 MG, Sterile H2O 10 ml 2 ML IV SCH ×4 (05:24→12:06)
[2022-07-24 05:36] LABS: Absolute Neutrophil Ct (ANC) 10.49 x10^3/uL (1.4-6.9); BASOPHIL % 0.2 % (0.0-0.4); Basophil (Absolute #) 0.02 x10^3/uL (0-0.4); Eosinophil (Absolute #) 0 x10^3/uL (0-0.5); Hematocrit 41.2 % (35-47); Hemoglobin 12.2 g/dL (12.0-16.0); IMMATURE GRAN # 0.31 x10^3u/L (0.00-0.03); IMMATURE GRAN % 2.6 % (0.00-0.4); Lymphocyte (Absolute #) 0.65 x10^3/uL (1.0-4.6); Lymphocytes % 5.4 % (24.0-44.0); Mean Cell Volume 86.7 fL (78-100); Mean Corpuscular Hemoglobin 25.7 pg (26-32); Mean Corpuscular Hgb Concent. 29.6 g/dL (32-36); Mean Platelet Volume 9.5 fL (7.5-11.0); Monocyte (Absolute #) 0.46 x10^3/uL (0.0-1.3); Monocytes % 3.9 % (0.0-12.0); Neutrophil % 87.9 % (36.0-66.0); Platelet Count 232 x10^3/uL (150-450); Red Blood Count 4.75 x10^6/uL (4.1-5.4); Red Cell Distribution Width 16.2 % (11.5-14.0); White Blood Count 11.9 x10^3/uL (4.0-10.5)
[2022-07-24] MEDS: Sodium Chloride 0.9% 1000 ML 1,000 ML IV SCH (06:05)
[2022-07-24 06:27] LABS: ANION GAP 9.7 MEQ/L (5-15); BLOOD UREA NITROGEN 21 mg/dL (7-17); CHLORIDE 98 mmol/L (98-107); Calcium 8.4 mg/dL (8.4-10.2); Carbon Dioxide 36 mmol/L (22-30); Creatinine 1 0.63 mg/dL (0.52-1.04); EST GLOMERULAR FILTRATION RATE > 60.0 ML/MIN; Glucose 316 mg/dL (74-106); Potassium 4.6 mmol/L (3.5-5.1); SODIUM 139 mmol/L (137-145)
--- NOTE | 2022-07-24 08:44 | PCM.DS ---
Discharge Summary Date of Admission: 07/21/22 22:35 Admitting Physician: ALEX DENNIS Primary Care Provider: DAVID LUGO Allergies Allergies No Known Drug Allergies Allergy (Verified 07/21/22 22:56) Hospital Summary - Hospital Course Hospital Course: Pt is a 56 yo female pt of Dr. Wilfrid Lugo with DM II, COPD, anxiety, HTN, and morbid obesity with COPD exacerbation. She was admitted through ER and has been on 4L O2 until yesterday. On rocephin and zithromax day #3 today; solumedrol 60mg IV q6h. She is down to 2L O2 currently. Would very much like to go home. Will discharge to home on augmentin and prednisone, with home O2. F/u with PCP in 1 week. - Vitals & Intake/Output Vital Signs: Vital Signs Temperature 97.0 F 07/24/22 07:28 Pulse Rate 69 07/24/22 07:28 Respiratory Rate 18 07/24/22 07:28 Blood Pressure 138/65 07/24/22 07:28 O2 Sat by Pulse Oximetry 94 L 07/24/22 07:28 Intake & Output: Intake & Output 07/21/22 07/22/22 07/23/22 07/24/22 11:59 11:59 11:59 11:59 Intake Total 1256 3755 5358 Output Total 817 848 0811 Balance 906 2955 3358 Weight 201.3 kg - Lab Result Diagrams: 07/24/22 04:00 07/24/22 05:09 Lab Results-Last 24 Hrs: Lab Results-Last 24 Hours 07/23/22 07/23/22 07/23/22 Range/Units 04:00 12:05 16:22 WBC (4.0-10.5) x10^3/uL RBC (4.1-5.4) x10^6/uL Hgb (12.0-16.0) g/dL Hct (35-47) % MCV (78-100) fL MCH (26-32) pg MCHC (32-36) g/dL RDW (11.5-14.0) % Plt Count (150-450) x10^3/uL MPV (7.5-11.0) fL Gran % (36.0-66.0) % Immature Gran % (Auto) (0.00-0.4) % Nucleat RBC Rel Count (0.00-0.1) % Eos # (Auto) (0-0.5) x10^3/uL Immature Gran # (Auto) (0.00-0.03) x10^3u/L Absolute Lymphs (auto) (1.0-4.6) x10^3/uL Absolute Monos (auto) (0.0-1.3) x10^3/uL Absolute Nucleated RBC (0.00-0.01) x10^3u/L Lymphocytes % (24.0-44.0) % Monocytes % (0.0-12.0) % Eosinophils % (0.00-5.0) % Basophils % (0.0-0.4) % Absolute Granulocytes (1.4-6.9) x10^3/uL Basophils # (0-0.4) x10^3/uL Sodium (137-145) mmol/L Potassium (3.5-5.1) mmol/L Chloride (98-107) mmol/L Carbon Dioxide (22-30) mmol/L Anion Gap (5-15) MEQ/L BUN (7-17) mg/dL Creatinine (0.52-1.04) mg/dL Estimated GFR ML/MIN Glucose (74-106) mg/dL POC Glucometer 347 H 302 H (74 to 106) mg/dL Hemoglobin A1c 7.64 H (4.5-6.0) % Calcium (8.4-10.2) mg/dL 07/23/22 07/24/22 07/24/22 Range/Units 22:07 04:00 05:09 WBC 11.9 H (4.0-10.5) x10^3/uL RBC 4.75 (4.1-5.4) x10^6/uL Hgb 12.2 (12.0-16.0) g/dL Hct 41.2 (35-47) % MCV 86.7 (78-100) fL MCH 25.7 L (26-32) pg MCHC 29.6 L (32-36) g/dL RDW 16.2 H (11.5-14.0) % Plt Count 232 (150-450) x10^3/uL MPV 9.5 (7.5-11.0) fL Gran % 87.9 H (36.0-66.0) % Immature Gran % (Auto) 2.6 H (0.00-0.4) % Nucleat RBC Rel Count 0.0 (0.00-0.1) % Eos # (Auto) 0 (0-0.5) x10^3/uL Immature Gran # (Auto) 0.31 H (0.00-0.03) x10^3u/L Absolute Lymphs (auto) 0.65 L (1.0-4.6) x10^3/uL Absolute Monos (auto) 0.46 (0.0-1.3) x10^3/uL Absolute Nucleated RBC 0.00 (0.00-0.01) x10^3u/L Lymphocytes % 5.4 L (24.0-44.0) % Monocytes % 3.9 (0.0-12.0) % Eosinophils % 0.0 (0.00-5.0) % Basophils % 0.2 (0.0-0.4) % Absolute Granulocytes 10.49 H (1.4-6.9) x10^3/uL Basophils # 0.02 (0-0.4) x10^3/uL Sodium 139 (137-145) mmol/L Potassium 4.6 (3.5-5.1) mmol/L Chloride 98 (98-107) mmol/L Carbon Dioxide 36 H (22-30) mmol/L Anion Gap 9.7 (5-15) MEQ/L BUN 21 H (7-17) mg/dL Creatinine 0.63 (0.52-1.04) mg/dL Estimated GFR > 60.0 ML/MIN Glucose 316 H (74-106) mg/dL POC Glucometer 384 H (74 to 106) mg/dL Hemoglobin A1c (4.5-6.0) % Calcium 8.4 (8.4-10.2) mg/dL 07/24/22 Range/Units 07:20 WBC (4.0-10.5) x10^3/uL RBC (4.1-5.4) x10^6/uL Hgb (12.0-16.0) g/dL Hct (35-47) % MCV (78-100) fL MCH (26-32) pg MCHC (32-36) g/dL RDW (11.5-14.0) % Plt Count (150-450) x10^3/uL MPV (7.5-11.0) fL Gran % (36.0-66.0) % Immature Gran % (Auto) (0.00-0.4) % Nucleat RBC Rel Count (0.00-0.1) % Eos # (Auto) (0-0.5) x10^3/uL Immature Gran # (Auto) (0.00-0.03) x10^3u/L Absolute Lymphs (auto) (1.0-4.6) x10^3/uL Absolute Monos (auto) (0.0-1.3) x10^3/uL Absolute Nucleated RBC (0.00-0.01) x10^3u/L Lymphocytes % (24.0-44.0) % Monocytes % (0.0-12.0) % Eosinophils % (0.00-5.0) % Basophils % (0.0-0.4) % Absolute Granulocytes (1.4-6.9) x10^3/uL Basophils # (0-0.4) x10^3/uL Sodium (137-145) mmol/L Potassium (3.5-5.1) mmol/L Chloride (98-107) mmol/L Carbon Dioxide (22-30) mmol/L Anion Gap (5-15) MEQ/L BUN (7-17) mg/dL Creatinine (0.52-1.04) mg/dL Estimated GFR ML/MIN Glucose (74-106) mg/dL POC Glucometer 320 H (74 to 106) mg/dL Hemoglobin A1c (4.5-6.0) % Calcium (8.4-10.2) mg/dL Micro Results-Entire Visit: Accuchecks Date 07/24/22 Date 07/23/22 Date 07/23/22 Date 07/23/22 Time 07:28 Time 16:25 Time 12:24 - Procedures and Test Procedures and Tests throughout Hospitalization: Therapy Orders & Screens 07/21/22 22:45 Oxygen Nasal Cannula 2 lpm Comment: Respiratory Therapy Consult ROUTINE Comment: Reason For Exam: 07/21/22 23:26 Respiratory Therapy Assessment DAILY Comment: 07/23/22 19:21 Flutter Therapy UD Comment: Diagnosis: Acute Hypoxemia, Resp Failure, COPD Exac. Extravasation of IV contrast Discharge Exam General Appearance: no apparent distress, obese Neurologic Exam: oriented x 3, cooperative Eye Exam: eyes nml inspection Ears, Nose, Throat Exam: moist mucous membranes Neck Exam: normal inspection Respiratory Exam: diminished breath sounds (good air exchange), No crackles/rales, No rhonchi, No wheezing Cardiovascular Exam: regular rate/rhythm, normal heart sounds, No murmur Extremity Exam: normal inspection, No pedal edema, No swelling Skin Exam: normal color, warm, dry, No rash Final Diagnosis/Problem List - Final Discharge Diagnosis/Problem (1) COPD exacerbation Current Visit: Yes Status: Acute Assessment & Plan: Home on augmentin x 7d and prednisone for 7d. Code(s): J44.1 - CHRONIC OBSTRUCTIVE PULMONARY DISEASE W (ACUTE) EXACERBATION (2) Acute hypoxemic respiratory failure Current Visit: Yes Status: Acute Assessment & Plan: home on O2 Code(s): J96.01 - ACUTE RESPIRATORY FAILURE WITH HYPOXIA (3) Diabetes mellitus, type II Current Visit: Yes Status: Chronic (4) HTN (hypertension) Current Visit: Yes Status: Chronic Code(s): I10 - ESSENTIAL (PRIMARY) HYPERTENSION (5) Morbid obesity Current Visit: Yes Status: Chronic Code(s): E66.01 - MORBID (SEVERE) OBESITY DUE TO EXCESS CALORIES - Discharge Disposition: Home, Self-Care Condition: Good Prescriptions: New Lactobacillus Acidophilus [Acidophilus TABLET] 1 tab PO BID #30 tablet Ipratropium Hallie 0.5 mg [Atrovent 0.5MG NEBULE] 0.5 mg IH QID #28 unit Amox Tr/Potass Clav. 875 mg [Augmentin 875-125 Tablet] 875 mg PO BID 7 Days #14 tablet Prednisone 20 mg [Deltasone 20 mg] 20 mg PO DAILY #17 tablet Albuterol 2.5 mg/3 ml Neb [Proventil 2.5 mg/3 ml Neb] 2.5 mg IH QID #60 unit Continue lisinopriL [Lisinopril] 5 mg PO DAILY Venlafaxine HCl 37.5 mg [Effexor 37.5 mg] 37.5 mg PO DAILY Pioglitazone HCl [Actos] 45 mg PO DAILY Metformin HCl 500 mg [Glucophage 500 MG] 1,000 mg PO BID Levothyroxine Sodium [Levothyroxine] 25 mcg PO DAILY Levothyroxine Sodium [Levothyroxine] 200 mcg PO DAILY Insulin Glargine,Hum.rec.anlog [Eugenia Lr U-100] 44 units SQ DAILY Etodolac 400 mg [Lodine 400 mg] 400 mg PO BID Aspirin 81 gm Chew [Baby Aspirin 81 mg Chew] 81 mg PO DAILY Follow up with: DAVID LUGO [Primary Care Provider] -
[2022-07-24] MEDS: Zestril 5 MG PO SCH (10:10)
[2022-07-24] MEDS: Lantus Insulin SQ SCH (10:10)
[2022-07-24] MEDS: EFFEXOR 37.5 MG PO SCH (10:10)
[2022-07-24] MEDS: SYNTHROID 100 MCG PO SCH (10:10)
[2022-07-24] MEDS: ECOTRIN 81 MG PO SCH (10:10)
[2022-07-24] MEDS: Pepcid 20 MG PO SCH (10:10)
[2022-07-24] MEDS: SYNTHROID 25 MCG PO SCH (10:11)
[2022-07-24] MEDS: ENOXAPARIN SODIUM SQ SCH (10:11)
[2022-07-24 11:44] VITALS: BP 164/78; PULSE 61; O2SAT 94
[2022-07-24] MEDS: HUMALOG SQ PRN (12:05)
== END 2022-07-24 13:20 | disposition home or self-care (01) ==
LOC: ED 19:13 → MED SURG 22:35
PROVIDERS: ADMIT Family Medicine; ATTEND Family Medicine
DX: J44.1 Chronic obstructive pulmonary disease with (acute) exacerbation (principal); J96.01 Acute respiratory failure with hypoxia; I10 Essential (primary) hypertension; E11.9 Type 2 diabetes mellitus without complications; F41.9 Anxiety disorder, unspecified; E66.01 Morbid (severe) obesity due to excess calories; Z79.899 Other long term (current) drug therapy; Z20.828 Contact with and (suspected) exposure to other viral communicable diseases; Z72.0 Tobacco use
CPT/HCPCS: 0241U; 36000; 36415; 36600; 71045; 71260; 80048; 80053; 82375; 82803; 82947; 83036; 83605; 83735; 83880; 84484; 85025; 85027; 85379; 93005; 93041; 93268; 94640; 94667; 94760; 94762; 96360; 96365; 99285; J0456; J0696; J1650; J1817; J2930; A9270-GY; G0378